=== PATIENT | male | born 1935 | race Caucasian/White ===

== ENCOUNTER 2018-08-27 07:10 | Day surgery (SDC) | payer MEDICARE, BC ==
[2018-08-18 11:31] VITALS: BMI 27.3
[2018-08-27] MEDS ORDERED: Midazolam HCl 2 mg/2 ml Vial ONE (10:05)
[2018-08-27] MEDS ORDERED: Heparin 10,000 UNITS/1 ML VIAL ONE (10:05)
[2018-08-27] MEDS ORDERED: Verapamil 5 MG/2 ML VIAL ONE (10:05)
[2018-08-27] MEDS ORDERED: Nitroglycerin 100MG/250ML BOT 250 ML ONE (10:05)
[2018-08-27] MEDS ORDERED: Fentanyl 100 MCG/2 ML VIAL ONE (10:06)
[2018-08-27] MEDS ORDERED: Iopamidol 370 76% 100 ML VIAL ONE (10:28)
== END 2018-08-27 15:50 | disposition home or self-care (01) ==
LOC: CCL 07:10
PROVIDERS: ATTEND Internal Medicine Cardiovascular Disease
PROC: 4A023N7 Measurement of Cardiac Sampling and Pressure, Left Heart, Percutaneous Approach (ICD-10-PCS; principal; 2018-08-27)
PROC: B2111ZZ Fluoroscopy of Multiple Coronary Arteries using Low Osmolar Contrast (ICD-10-PCS; 2018-08-27)
DX: I25.10 Atherosclerotic heart disease of native coronary artery without angina pectoris (principal); I11.0 Hypertensive heart disease with heart failure; I50.9 Heart failure, unspecified; I27.20 Pulmonary hypertension, unspecified; E07.9 Disorder of thyroid, unspecified; M10.9 Gout, unspecified; K21.9 Gastro-esophageal reflux disease without esophagitis; M19.90 Unspecified osteoarthritis, unspecified site; E78.5 Hyperlipidemia, unspecified; J45.909 Unspecified asthma, uncomplicated; Z79.1 Long term (current) use of non-steroidal anti-inflammatories (NSAID); Z79.82 Long term (current) use of aspirin; Z79.899 Other long term (current) drug therapy; Z88.5 Allergy status to narcotic agent
CPT/HCPCS: 93458; 93798; 99152; C1769; J1644; J2250; J3010; Q9967

== ENCOUNTER 2022-05-15 14:06 | Outpatient (CLI) | payer MEDICARE, BC ==
[2022-05-15 14:40] LABS: Hemoglobin 15.6 g/dL (13.5-17.5); Mean Corpuscular HGB CONC 34.5 g/dL (32.0-36.0); Mean Corpuscular Hemoglobin 30.9 pg (27.0-33.0); Mean Corpuscular Volume 89.5 fl (81.2-95.1); Mean Platelet Volume 9.2 fl (7.4-10.4); Platelet Count 223 10x3/uL (150-450); RBC Distribution Width 12.9 % (11.5-14.5); Red Blood Cell (RBC) Count 5.05 10x6/uL (4.32-5.72); White Blood Cell (WBC) Count 6.9 10x3/uL (3.5-10.5)
[2022-05-15 14:52] LABS: PTT 26.7 sec (22.0-33.0); Prothrombin Time 10.5 sec (9.5-12.1)
[2022-05-15 15:01] LABS: Anion Gap 14 mmol/L (10-20); BUN (Urea Nitrogen) 21 mg/dL (8.4-25.7); Calc. Creatinine Clearance 0 mL/min (70-130); Carbon Dioxide 27 mmol/L (23-31); Chloride 106 mmol/L (98-107); Estimated GFR 53; Glucose 102 mg/dL (83-110); Sodium 143 mmol/L (136-145)
== END 2022-05-15 14:07 | disposition home or self-care (01) ==
LOC: LABBT 14:06
PROVIDERS: ATTEND Surgery
DX: Z01.812 Encounter for preprocedural laboratory examination (principal); M48.062 Spinal stenosis, lumbar region with neurogenic claudication; M54.16 Radiculopathy, lumbar region
CPT/HCPCS: 80048; 85027; 85610; 85730

== ENCOUNTER 2022-05-20 07:45 | Observation (INO) | payer MEDICARE, BC ==
[2022-05-20 09:06] LABS: SARS-CoV-2 NAA Rapid Test Not Detected (NotDetected)
[2022-05-20] MEDS ORDERED: Fentanyl 250 MCG/5 ML VIAL ONE (10:05)
[2022-05-20] MEDS ORDERED: Vancomycin 1 GM VIAL ONE (10:05)
[2022-05-20] MEDS ORDERED: Thrombin 5000 UNITS/5 ML VIAL ONE (10:05)
[2022-05-20] MEDS ORDERED: SUGAMMADEX SODIUM 200 MG/2 ML VIAL ONE (10:06)
[2022-05-20] MEDS ORDERED: Sodium Chloride 0.9% 100 ML ONE (10:08)
[2022-05-20] MEDS ORDERED: CEFAZOLIN 2 GM VIAL ONE (10:08)
[2022-05-20] MEDS ORDERED: Dexamethasone 20 MG/5 ML VIAL ONE (10:15)
[2022-05-20] MEDS ORDERED: PROPOFOL 200 MG/20 ML VIAL ONE (10:15)
[2022-05-20] MEDS ORDERED: Ondansetron PF 4 MG/2 ML Vial ONE (10:15)
[2022-05-20] MEDS ORDERED: Lidocaine 1% PF 5 ML VIAL ONE (10:15)
[2022-05-20] MEDS ORDERED: Glycopyrrolate 0.2 MG/ML 5 ML SYRINGE ONE (10:15)
[2022-05-20] MEDS ORDERED: PHENYLEPHRINE-NS 100 MCG/ML 10 ML SYRINGE ONE (10:15)
[2022-05-20] MEDS ORDERED: NEOSTIGMINE 3 MG/3 ML SYR 3 MG/3 ML SYRINGE ONE (10:15)
[2022-05-20] MEDS ORDERED: traMADol HCl 50 MG TAB PO PRN (12:08)
[2022-05-20] MEDS ORDERED: Ondansetron PF 4 MG/2 ML Vial IVP PRN (12:08)
[2022-05-20] MEDS ORDERED: diphenhydrAMINE 25 MG CAP PO PRN (12:08)
[2022-05-20] MEDS ORDERED: Acetaminophen 325 MG TAB PO PRN (12:08)
[2022-05-20] MEDS ORDERED: Morphine 2 MG/ML VIAL SLOW IVP PRN (12:08)
[2022-05-20] MEDS ORDERED: oxyCODONE 5 MG TAB PO PRN (12:10)
[2022-05-20] MEDS ORDERED: hydrALAZINE 20 MG/ML VIAL SLOW IVP PRN (12:10)
[2022-05-20] MEDS ORDERED: tiZANidine HCl 4 MG TAB PO PRN (12:10)
[2022-05-20] MEDS ORDERED: Albuterol 200 PUFF (6.7GM INHALER) INH PRN (12:11)
[2022-05-20] MEDS: Sodium Chloride 0.9% 1,000 ML IV SCH ×2 (12:15→20:48)
[2022-05-20] MEDS ORDERED: Fentanyl 100 MCG/2 ML VIAL ONE (13:04)
[2022-05-20] MEDS ORDERED: Polyethylene Glycol 3350 17 GM Packet PO PRN (13:12)
[2022-05-20] MEDS ORDERED: Ondansetron HCl/PF 4 MG/2 ML Vial IVP PRN (13:30)
[2022-05-20] MEDS ORDERED: Promethazine HCl 25 MG/ML VIAL IM/IV PRN (13:30)
[2022-05-20 16:55] VITALS: BMI 27.7
[2022-05-20] MEDS: Acetaminophen/Codeine 30-300mg Tablet PO PRN (20:44)
[2022-05-20] MEDS ORDERED: Atorvastatin Calcium 20 MG TAB PO SCH (21:00)
[2022-05-20] MEDS ORDERED: Montelukast Sodium 10 mg Tablet PO SCH (21:00)
[2022-05-20] MEDS ORDERED: Loratadine 10 MG TAB PO SCH (21:00)
[2022-05-20] MEDS: CEFAZOLIN 2 GM in Sodium Chloride 0.9% 100 ML IVPB SCH (21:23)
[2022-05-21] MEDS: CEFAZOLIN 2 GM in Sodium Chloride 0.9% 100 ML IVPB SCH (03:17)
[2022-05-21] MEDS ORDERED: Levothyroxine 150 MCG TAB PO SCH (06:00)
[2022-05-21] MEDS: Acetaminophen/Codeine 30-300mg Tablet PO PRN (06:30)
[2022-05-21] MEDS ORDERED: Folic Acid 1 MG TAB PO SCH (09:00)
[2022-05-21] MEDS ORDERED: Cyanocobalamin (Vitamin B-12) 1,000 MCG TAB PO SCH (09:00)
[2022-05-21] MEDS ORDERED: Cholecalciferol 1,000 UNITS (25 MCG) TAB PO SCH (09:00)
[2022-05-21] MEDS ORDERED: Allopurinol 300 MG TAB PO SCH (09:00)
[2022-05-21] MEDS ORDERED: Hydrochlorothiazide 25 MG TAB PO SCH (09:00)
[2022-05-21] MEDS ORDERED: Multivitamin W/ Minerals 1 TAB PO SCH (09:00)
[2022-05-21] MEDS ORDERED: Amlodipine 10 MG TAB PO SCH (09:00)
[2022-05-21 11:57] VITALS: BP 143/78; TEMP 97.8
== END 2022-05-21 12:47 | disposition home or self-care (01) ==
LOC: SDC 07:45 → T4-A 12:12
PROVIDERS: ADMIT Surgery; ATTEND Surgery
PROC: 01NB0ZZ Release Lumbar Nerve, Open Approach (ICD-10-PCS; principal; 2022-05-20)
DX: M48.062 Spinal stenosis, lumbar region with neurogenic claudication (principal); M54.16 Radiculopathy, lumbar region; Z79.890 Hormone replacement therapy; Z79.899 Other long term (current) drug therapy; Z88.5 Allergy status to narcotic agent; Z88.8 Allergy status to other drugs, medicaments and biological substances; Z20.822 Contact with and (suspected) exposure to COVID-19
CPT/HCPCS: 63047; U0002; J1100; J2405; J2704; J3010; J3370; J3490; J7050

== ENCOUNTER 2022-05-23 22:27 | Inpatient (IN) | payer MEDICARE, BC ==
[2022-05-23 23:37] LABS: #Eosinphils 0.1 thou/uL (0.0-0.7); #Lymphocytes 1.7 thou/uL (1.20-3.40); #Monocytes 1.4 thou/uL (0.11-0.59); #Neutrophils 7.9 thou/uL (1.40-6.50); %Basophils 0.4 % (0.0-1.0); %Eosinophils 1.2 % (0.0-10.0); %Lymphocytes 15.4 % (21.0-51.0); %Monocytes 12.9 % (0.0-10.0); %Neutrophils 70.1 % (42.0-75.0); Mean Corpuscular HGB CONC 35.3 g/dL (32.0-36.0); Mean Corpuscular Hemoglobin 32.7 pg (27.0-31.0); Mean Corpuscular Volume 92.4 fl (78.0-98.0); Mean Platelet Volume 7.1 fL (7.4-10.4); Platelet Count 241 10x3/uL (130-400); Red Blood Cell (RBC) Count 4.59 mill/uL (4.70-6.10); White Blood Cell (WBC) Count 11.2 10x3/uL (4.8-10.8)
[2022-05-23 23:44] LABS: ALT (SGPT) 12 U/L (8-55); AST (SGOT) 21 U/L (5-34); Albumin 4.2 g/dL (3.4-4.8); Alkaline Phosphatase 68 U/L (40-110); Anion Gap 15 mmol/L (10-20); BUN (Urea Nitrogen) 29 mg/dL (8.4-25.7); Bilirubin, Total 0.9 mg/dL (0.2-1.2); Calc. Creatinine Clearance 0 mL/min (70-130); Calcium 9.2 mg/dL (7.8-10.44); Carbon Dioxide 24 mmol/L (23-31); Chloride 100 mmol/L (98-107); Estimated GFR 47; Globulin 2.3 g/dL (2.4-3.5); Glucose 113 mg/dL (83-110); Potassium 3.9 mmol/L (3.5-5.1); Protein, Total 6.5 g/dL (5.8-8.1); Sodium 135 mmol/L (136-145)
[2022-05-24] MEDS ORDERED: Cefepime 2 GM VIAL ONE
[2022-05-24] MEDS ORDERED: Vancomycin 1 GM/200 ML (FROZEN) BAG ONE (00:34)
[2022-05-24 00:53] LABS: CKMB 1.7 ng/mL (0-6.6)
[2022-05-24 02:10] VITALS: BMI 27.7
[2022-05-24] MEDS ORDERED: Sodium Chloride 0.9% 1,000 ML IV SCH (02:15)
[2022-05-24] MEDS ORDERED: Ondansetron ODT 4 MG TAB SL PRN (02:15)
[2022-05-24] MEDS ORDERED: Acetaminophen 325 MG TAB PO PRN (02:15)
[2022-05-24] MEDS ORDERED: Ondansetron PF 4 MG/2 ML Vial IVP PRN (02:15)
[2022-05-24] MEDS ORDERED: Acetaminophen 650 MG Suppository PR PRN (03:00)
[2022-05-24 05:41] LABS: #Eosinphils 0.2 thou/uL (0.0-0.7); #Lymphocytes 1.6 thou/uL (1.20-3.40); #Monocytes 1.4 thou/uL (0.11-0.59); #Neutrophils 6.5 thou/uL (1.40-6.50); %Basophils 0.3 % (0.0-1.0); %Eosinophils 1.8 % (0.0-10.0); %Lymphocytes 16.2 % (21.0-51.0); %Monocytes 14.6 % (0.0-10.0); %Neutrophils 67.1 % (42.0-75.0); Hemoglobin 12.7 g/dL (14.0-18.0); Mean Corpuscular HGB CONC 33.5 g/dL (32.0-36.0); Mean Corpuscular Hemoglobin 31.3 pg (27.0-31.0); Mean Corpuscular Volume 93.7 fl (78.0-98.0); Mean Platelet Volume 6.7 fL (7.4-10.4); Platelet Count 211 10x3/uL (130-400); Red Blood Cell (RBC) Count 4.05 mill/uL (4.70-6.10); White Blood Cell (WBC) Count 9.7 10x3/uL (4.8-10.8)
[2022-05-24 06:06] LABS: Troponin I Less than 0.010 ng/mL (< 0.028)
[2022-05-24 06:10] LABS: Anion Gap 13 mmol/L (10-20); BUN (Urea Nitrogen) 26 mg/dL (8.4-25.7); Calc. Creatinine Clearance 59 mL/min (70-130); Calcium 8.6 mg/dL (7.8-10.44); Carbon Dioxide 23 mmol/L (23-31); Chloride 104 mmol/L (98-107); Estimated GFR 60; Glucose 120 mg/dL (83-110); Potassium 3.5 mmol/L (3.5-5.1); Sodium 136 mmol/L (136-145)
[2022-05-24] MEDS: Sodium Chloride 0.9% 1,000 ML IV SCH ×2 (08:24→11:41)
[2022-05-24] MEDS ORDERED: Cefepime 2 GM in Sodium Chloride 0.9% 100 ML IVPB SCH (11:00)
[2022-05-24] MEDS ORDERED: Vancomycin HCl 1.25 GM in Sodium Chloride 0.9% 250 ML 300 ML IVPB SCH (11:00)
[2022-05-24] MEDS ORDERED: Vancomycin 1.5 GRAM/300 ML BAG 1.5 GM in Premix Bag 1 BAG IVPB SCH (17:00)
[2022-05-24] MEDS ORDERED: Bisacodyl 5 MG TAB PO PRN (17:36)
[2022-05-24] MEDS: Cefepime 1 GM in Sodium Chloride 0.9% 100 ML IVPB SCH (23:53)
[2022-05-25 01:12] LABS: Bacteria/HPF None Seen HPF (None Seen); Bilirubin Negative (Negative); Blood, Urine Negative (Negative); CAUTI Indications for Culture Fever or rigors; Clarity Clear (Clear); Glucose, Urine (Dipstick) Normal (Negative); Ketone, Urine Negative (Negative); Leukocyte Negative Leu/uL (Negative); Nitrite Negative (Negative); Protein, Urine (Dipstick) Negative (Neg-Trace); RBC/HPF 0-3 HPF (0-3); Specific Gravity, Urine 1.009 (1.002-1.036); Squamous Epithelial 0-3 HPF (0-3); Urobilinogen Normal mg/dL (Less than 2); WBC/HPF 0-3 HPF (0-3); pH, Urine 6.5 (5.0-9.0)
[2022-05-25 01:14] LABS: Urine Culture Reflex No No
[2022-05-25] MEDS: Cefepime 1 GM in Sodium Chloride 0.9% 100 ML IVPB SCH (11:05)
[2022-05-25] MEDS ORDERED: Atorvastatin Calcium 20 MG TAB PO SCH (21:00)
[2022-05-25] MEDS ORDERED: Montelukast Sodium 10 mg Tablet PO SCH (21:00)
[2022-05-25] MEDS ORDERED: Loratadine 10 MG TAB PO SCH (21:00)
[2022-05-26] MEDS ORDERED: Levothyroxine 150 MCG TAB PO SCH (06:00)
[2022-05-26 06:11] LABS: Anion Gap 14 mmol/L (10-20); BUN (Urea Nitrogen) 14 mg/dL (8.4-25.7); Calc. Creatinine Clearance 68 mL/min (70-130); Carbon Dioxide 22 mmol/L (23-31); Chloride 106 mmol/L (98-107); Estimated GFR 72; Glucose 115 mg/dL (83-110); Potassium 3.4 mmol/L (3.5-5.1); Sodium 139 mmol/L (136-145)
[2022-05-26 06:24] LABS: Hemoglobin 12.6 g/dL (14.0-18.0); Mean Corpuscular HGB CONC 33.9 g/dL (32.0-36.0); Mean Corpuscular Hemoglobin 31.6 pg (27.0-31.0); Mean Corpuscular Volume 93.1 fl (78.0-98.0); Mean Platelet Volume 6.9 fL (7.4-10.4); Platelet Count 237 10x3/uL (130-400); RBC Distribution Width 11.8 % (11.5-14.5); White Blood Cell (WBC) Count 9.1 10x3/uL (4.8-10.8)
[2022-05-26 08:09] LABS: Band 2 % (5-11); Eosinophils 4 % (0-10); Lymphocytes 26 % (21-51); MDiff Complete? YES; Monocytes 5 % (0-10); Neutrophil 63 % (42-75); Platelet Morphology Comment Appears Adequate; RBC Morphology Normal
[2022-05-26] MEDS ORDERED: Amlodipine 10 MG TAB PO SCH (09:00)
[2022-05-26] MEDS ORDERED: Cholecalciferol 1,000 UNITS (25 MCG) TAB PO SCH (09:00)
[2022-05-26] MEDS ORDERED: Allopurinol 300 MG TAB PO SCH (09:00)
[2022-05-26] MEDS ORDERED: Multivitamin W/ Minerals 1 TAB PO SCH (09:00)
[2022-05-26] MEDS ORDERED: Folic Acid 1 MG TAB PO SCH (09:00)
[2022-05-26] MEDS ORDERED: Potassium Chloride 20 MEQ TAB PO SCH (11:30)
[2022-05-26 12:42] VITALS: BP 144/80; TEMP 98.6
== END 2022-05-26 13:55 | disposition home or self-care (01) | DRG 91 ==
LOC: ERS 22:27 → SURG B 05-24 00:29
PROVIDERS: ADMIT Internal Medicine; ATTEND Internal Medicine
DX: G92.8 Other toxic encephalopathy (principal); I21.A1 Myocardial infarction type 2; E87.1 Hypo-osmolality and hyponatremia; F05 Delirium due to known physiological condition; E87.6 Hypokalemia; E78.5 Hyperlipidemia, unspecified; K21.9 Gastro-esophageal reflux disease without esophagitis; E03.9 Hypothyroidism, unspecified; R50.9 Fever, unspecified; T39.8X5A Adverse effect of other nonopioid analgesics and antipyretics, not elsewhere classified, initial encounter; N18.30 Chronic kidney disease, stage 3 unspecified; Z88.8 Allergy status to other drugs, medicaments and biological substances; Z79.899 Other long term (current) drug therapy; Z79.890 Hormone replacement therapy; Z90.89 Acquired absence of other organs; Z98.890 Other specified postprocedural states
CPT/HCPCS: 36415; 70450; 71045; 80048; 80053; 81001; 82553; 83605; 84484; 85025; 85652; 86140; 87040; 93005; 93970; J0692; J3370; J3370-JW; J3490; J7050

== ENCOUNTER 2022-11-11 14:51 | Inpatient (IN) | payer MEDICARE, BC ==
[2022-11-11 17:10] VITALS: BMI 29.1
[2022-11-11] MEDS ORDERED: Nitroglycerin 0.4 MG TAB (25 Tab Bottle) SL PRN (20:09)
[2022-11-11] MEDS ORDERED: Morphine 2 MG/ML VIAL SLOW IVP SCH (20:15)
[2022-11-11] MEDS ORDERED: Acetaminophen/Codeine 30-300mg Tablet PO PRN (22:32)
[2022-11-11 23:19] LABS: Troponin I 0.099 ng/mL (< 0.028)
[2022-11-12] MEDS: Nitroglycerin 2% Ointment 1 INCH/1 GM Packet TOP SCH ×2 (05:08→14:38)
[2022-11-12 07:05] LABS: Cardiac Risk 3.1 (Less than 4.5)
[2022-11-12] MEDS ORDERED: Atorvastatin Calcium 20 MG TAB PO SCH ×2 (08:45→09:00)
[2022-11-12] MEDS ORDERED: Non-Formulary Item 1 EACH (Duloxetine Hcl [Duloxetine Hcl] 40 MG Capsule.Dr) PO SCH (09:00)
[2022-11-12] MEDS: Levothyroxine 150 MCG TAB PO SCH (09:02)
[2022-11-12] MEDS: Aspirin 325 mg Enteric Coated Tablet PO SCH (09:02)
[2022-11-12] MEDS: Amlodipine 10 MG TAB PO SCH (09:02)
[2022-11-12] MEDS: DULoxetine 20 MG CAP PO SCH ×2 (09:34→20:03)
[2022-11-12] MEDS: Colchicine 0.6 MG TAB PO SCH ×2 (10:01→20:03)
[2022-11-12] MEDS: Ibuprofen 600 MG TAB PO SCH ×3 (10:01→20:03)
[2022-11-12 12:37] LABS: Hemoglobin 13.3 g/dL (14.0-18.0); Platelet Count 168 10x3/uL (130-400)
[2022-11-12] MEDS ORDERED: Montelukast Sodium 10 mg Tablet PO SCH (21:00)
[2022-11-13 06:13] LABS: Anion Gap 13 mmol/L (10-20); BUN (Urea Nitrogen) 25 mg/dL (8.4-25.7); Calc. Creatinine Clearance 45 mL/min (70-130); Carbon Dioxide 24 mmol/L (23-31); Chloride 104 mmol/L (98-107); Estimated GFR 43; Potassium 3.6 mmol/L (3.5-5.1); Sodium 137 mmol/L (136-145)
[2022-11-13 06:14] LABS: Calcium 9.3 mg/dL (7.8-10.44); Glucose 137 mg/dL (83-110)
[2022-11-13] MEDS: Amlodipine 10 MG TAB PO SCH (08:50)
[2022-11-13] MEDS: Ibuprofen 600 MG TAB PO SCH (08:50)
[2022-11-13] MEDS: Levothyroxine 150 MCG TAB PO SCH (08:50)
[2022-11-13] MEDS: DULoxetine 20 MG CAP PO SCH (08:50)
[2022-11-13] MEDS: Colchicine 0.6 MG TAB PO SCH (08:50)
[2022-11-13] MEDS: Aspirin 325 mg Enteric Coated Tablet PO SCH (08:50)
[2022-11-13 11:57] VITALS: BP 124/66; TEMP 97.4
== END 2022-11-13 12:30 | disposition home or self-care (01) | DRG 316 ==
LOC: 2SW 16:53 → OBSVTOIN 11-12 15:20
PROVIDERS: ADMIT Internal Medicine; ATTEND Hospitalist
DX: I31.39 Other pericardial effusion (noninflammatory) (principal); I31.9 Disease of pericardium, unspecified; I10 Essential (primary) hypertension; E78.5 Hyperlipidemia, unspecified; E03.9 Hypothyroidism, unspecified; Z66 Do not resuscitate; I25.10 Atherosclerotic heart disease of native coronary artery without angina pectoris; K21.9 Gastro-esophageal reflux disease without esophagitis; J45.909 Unspecified asthma, uncomplicated; Z90.49 Acquired absence of other specified parts of digestive tract; Z88.5 Allergy status to narcotic agent; Z88.8 Allergy status to other drugs, medicaments and biological substances; Z79.899 Other long term (current) drug therapy; Z79.51 Long term (current) use of inhaled steroids; Z98.890 Other specified postprocedural states
CPT/HCPCS: 36415; 36416; 80048; 80061; 82553; 82565; 84484; 85014; 85018; 85049; 93005; 93010; 93306; 96372; 96374; G0378; J1650; J2272

== ENCOUNTER 2022-12-02 11:18 | Inpatient (IN) | payer MEDICARE, BC ==
[2022-12-02 11:53] LABS: #Basophils 0.1 thou/uL (0.0-0.2); #Eosinphils 0.1 thou/uL (0.0-0.7); #Monocytes 0.8 thou/uL (0.11-0.59); #Neutrophils 5.4 thou/uL (1.40-6.50); %Basophils 0.7 % (0.0-1.0); %Eosinophils 1.5 % (0.0-10.0); %Lymphocytes 14.3 % (21.0-51.0); %Monocytes 10.4 % (0.0-10.0); %Neutrophils 72.4 % (42.0-75.0); Hematocrit 41.6 % (42.0-52.0); Hemoglobin 13.4 g/dL (14.0-18.0); Mean Corpuscular HGB CONC 32.2 g/dL (32.0-36.0); Mean Corpuscular Hemoglobin 29.5 pg (27.0-31.0); Mean Corpuscular Volume 91.6 fl (78.0-98.0); Mean Platelet Volume 8.8 fL (7.4-10.4); Platelet Count 396 10x3/uL (130-400); RBC Distribution Width 13.1 % (11.5-14.5); Red Blood Cell (RBC) Count 4.54 mill/uL (4.70-6.10); White Blood Cell (WBC) Count 7.4 10x3/uL (4.8-10.8)
[2022-12-02] MEDS ORDERED: Nitroglycerin 2% Ointment 1 INCH/1 GM Packet ONE (12:11)
[2022-12-02] MEDS ORDERED: Aspirin Chewable 81 MG TAB ONE (12:11)
[2022-12-02 12:22] LABS: ALT (SGPT) 13 U/L (8-55); AST (SGOT) 16 U/L (5-34); Albumin 4.1 g/dL (3.4-4.8); Alkaline Phosphatase 93 U/L (40-110); Anion Gap 16 mmol/L (10-20); BUN (Urea Nitrogen) 15 mg/dL (8.4-25.7); Bilirubin, Total 0.3 mg/dL (0.2-1.2); Calc. Creatinine Clearance 0 mL/min (70-130); Calcium 9.5 mg/dL (7.8-10.44); Carbon Dioxide 23 mmol/L (23-31); Chloride 105 mmol/L (98-107); Estimated GFR 43; Globulin 3.2 g/dL (2.4-3.5); Glucose 119 mg/dL (83-110); Lipase 11 U/L (8-78); Potassium 3.8 mmol/L (3.5-5.1); Protein, Total 7.3 g/dL (5.8-8.1); Sodium 140 mmol/L (136-145)
[2022-12-02 12:23] LABS: Troponin I Less than 0.010 ng/mL (< 0.028)
[2022-12-02] MEDS ORDERED: Ondansetron ODT 4 MG TAB SL PRN (14:30)
[2022-12-02] MEDS ORDERED: Acetaminophen 325 MG TAB PO PRN (14:30)
[2022-12-02] MEDS ORDERED: Ondansetron PF 4 MG/2 ML Vial IVP PRN (14:30)
[2022-12-02 15:11] LABS: Troponin I Less than 0.010 ng/mL (< 0.028)
[2022-12-02 15:44] LABS: Free T4 (Free Thyroxine) 1.29 ng/dL (0.70-1.48)
[2022-12-02 17:38] VITALS: BMI 26.6
[2022-12-02 18:32] LABS: Troponin I Less than 0.010 ng/mL (< 0.028)
[2022-12-02] MEDS: Colchicine 0.6 MG TAB PO SCH (20:40)
[2022-12-03] MEDS ORDERED: Iopamidol-370 76% 500 ML MDV (1 ML CHARGE) ONE (09:02)
[2022-12-03] MEDS: Amlodipine 10 MG TAB PO SCH (10:01)
[2022-12-03] MEDS: Fluticasone Propionate Nasal Spray 16 gm Bottle NASAL SCH ×2 (10:01→20:04)
[2022-12-03] MEDS: Aspirin Chewable 81 MG TAB PO SCH (10:01)
[2022-12-03] MEDS: DULoxetine 20 MG CAP PO SCH ×2 (10:02→20:04)
[2022-12-03] MEDS: Colchicine 0.6 MG TAB PO SCH ×2 (10:02→20:08)
[2022-12-03] MEDS ORDERED: Ondansetron PF 4 MG/2 ML Vial IVP PRN (17:25)
[2022-12-03] MEDS ORDERED: Ondansetron ODT 4 MG TAB SL PRN (17:25)
[2022-12-03] MEDS: Montelukast Sodium 10 mg Tablet PO SCH (20:04)
[2022-12-03] MEDS: Ibuprofen 800 MG TAB PO SCH (20:05)
[2022-12-03] MEDS ORDERED: Atorvastatin Calcium 20 MG TAB PO SCH (21:00)
[2022-12-04 04:22] LABS: #Basophils 0.1 thou/uL (0.0-0.2); #Eosinphils 0.2 thou/uL (0.0-0.7); #Monocytes 0.9 thou/uL (0.11-0.59); #Neutrophils 5.2 thou/uL (1.40-6.50); %Eosinophils 2.6 % (0.0-10.0); %Lymphocytes 19.4 % (21.0-51.0); %Monocytes 11.2 % (0.0-10.0); %Neutrophils 65.2 % (42.0-75.0); Hematocrit 39.3 % (42.0-52.0); Hemoglobin 12.6 g/dL (14.0-18.0); Mean Corpuscular HGB CONC 32.1 g/dL (32.0-36.0); Mean Corpuscular Hemoglobin 29.3 pg (27.0-31.0); Mean Corpuscular Volume 91.4 fl (78.0-98.0); Mean Platelet Volume 8.7 fL (7.4-10.4); Platelet Count 403 10x3/uL (130-400)
[2022-12-04 04:43] LABS: Anion Gap 13 mmol/L (10-20); BUN (Urea Nitrogen) 18 mg/dL (8.4-25.7); Calc. Creatinine Clearance 48 mL/min (70-130); Calcium 9.6 mg/dL (7.8-10.44); Carbon Dioxide 25 mmol/L (23-31); Chloride 103 mmol/L (98-107); Estimated GFR 52; Glucose 120 mg/dL (83-110); Sodium 137 mmol/L (136-145)
[2022-12-04] MEDS: Levothyroxine 150 MCG TAB PO SCH (05:41)
[2022-12-04] MEDS: Ibuprofen 800 MG TAB PO SCH ×2 (08:59→20:39)
[2022-12-04] MEDS: Aspirin Chewable 81 MG TAB PO SCH (08:59)
[2022-12-04] MEDS: Amlodipine 10 MG TAB PO SCH (08:59)
[2022-12-04] MEDS: Colchicine 0.6 MG TAB PO SCH ×2 (08:59→20:38)
[2022-12-04] MEDS: DULoxetine 20 MG CAP PO SCH ×2 (09:00→20:39)
[2022-12-04] MEDS: Fluticasone Propionate Nasal Spray 16 gm Bottle NASAL SCH ×2 (09:05→20:40)
[2022-12-04] MEDS: Heparin 5,000 UNITS/ML VIAL SC SCH (20:39)
[2022-12-04] MEDS: Montelukast Sodium 10 mg Tablet PO SCH (20:39)
[2022-12-05 04:46] LABS: #Basophils 0.1 thou/uL (0.0-0.2); #Eosinphils 0.2 thou/uL (0.0-0.7); #Monocytes 0.8 thou/uL (0.11-0.59); #Neutrophils 5.2 thou/uL (1.40-6.50); %Basophils 0.9 % (0.0-1.0); %Eosinophils 2.9 % (0.0-10.0); %Lymphocytes 17.1 % (21.0-51.0); %Monocytes 10.5 % (0.0-10.0); %Neutrophils 67.8 % (42.0-75.0); Hematocrit 40.5 % (42.0-52.0); Hemoglobin 13.1 g/dL (14.0-18.0); Mean Corpuscular HGB CONC 32.3 g/dL (32.0-36.0); Mean Corpuscular Hemoglobin 29.6 pg (27.0-31.0); Mean Corpuscular Volume 91.4 fl (78.0-98.0); Mean Platelet Volume 8.6 fL (7.4-10.4); Platelet Count 397 10x3/uL (130-400); RBC Distribution Width 12.8 % (11.5-14.5); Red Blood Cell (RBC) Count 4.43 mill/uL (4.70-6.10); White Blood Cell (WBC) Count 7.6 10x3/uL (4.8-10.8)
[2022-12-05 05:07] LABS: Anion Gap 13 mmol/L (10-20); BUN (Urea Nitrogen) 20 mg/dL (8.4-25.7); Calc. Creatinine Clearance 55 mL/min (70-130); Calcium 9.1 mg/dL (7.8-10.44); Carbon Dioxide 25 mmol/L (23-31); Cardiac Risk 5.1 (Less than 4.5); Chloride 102 mmol/L (98-107); Cholesterol 108 mg/dl (< 200 Desired); Estimated GFR 60; Glucose 109 mg/dL (83-110); HDL Cholesterol 21 mg/dL (>60 Neg Risk); LDL Cholesterol, Calculated 59 mg/dL; Sodium 136 mmol/L (136-145); Triglycerides 142 mg/dL (Less than 150)
[2022-12-05] MEDS: Levothyroxine 150 MCG TAB PO SCH (05:24)
[2022-12-05] MEDS: DULoxetine 20 MG CAP PO SCH (09:41)
[2022-12-05] MEDS: Colchicine 0.6 MG TAB PO SCH (09:41)
[2022-12-05] MEDS: Ibuprofen 800 MG TAB PO SCH (09:41)
[2022-12-05] MEDS: Heparin 5,000 UNITS/ML VIAL SC SCH (09:41)
[2022-12-05] MEDS: Aspirin Chewable 81 MG TAB PO SCH (09:41)
[2022-12-05] MEDS: Amlodipine 10 MG TAB PO SCH (09:42)
[2022-12-05] MEDS: Fluticasone Propionate Nasal Spray 16 gm Bottle NASAL SCH (10:01)
[2022-12-05 15:41] VITALS: BP 127/79
[2022-12-05 15:47] VITALS: TEMP 97.6
== END 2022-12-05 17:30 | disposition home or self-care (01) | DRG 315 ==
LOC: ERS 11:18 → 2NO 13:32 → ERHOLD 13:32 → 2NO 16:37 → OBSVTOIN 12-03 17:24
PROVIDERS: ADMIT Hospitalist; ATTEND Family Medicine
DX: I30.9 Acute pericarditis, unspecified (principal); I13.0 Hypertensive heart and chronic kidney disease with heart failure and stage 1 through stage 4 chronic kidney disease, or unspecified chronic kidney disease; I50.32 Chronic diastolic (congestive) heart failure; N17.9 Acute kidney failure, unspecified; I25.10 Atherosclerotic heart disease of native coronary artery without angina pectoris; I45.10 Unspecified right bundle-branch block; M10.9 Gout, unspecified; K21.9 Gastro-esophageal reflux disease without esophagitis; E78.5 Hyperlipidemia, unspecified; E03.9 Hypothyroidism, unspecified; Z66 Do not resuscitate; N18.30 Chronic kidney disease, stage 3 unspecified; F32.A Depression, unspecified; D63.1 Anemia in chronic kidney disease; J30.9 Allergic rhinitis, unspecified; K80.20 Calculus of gallbladder without cholecystitis without obstruction; Z88.8 Allergy status to other drugs, medicaments and biological substances; Z88.5 Allergy status to narcotic agent; Z79.899 Other long term (current) drug therapy; Z79.51 Long term (current) use of inhaled steroids; Z90.49 Acquired absence of other specified parts of digestive tract; Z98.890 Other specified postprocedural states; Z98.42 Cataract extraction status, left eye; Z98.41 Cataract extraction status, right eye
CPT/HCPCS: 36415; 71045; 71250; 71275; 80048; 80053; 80061; 83690; 83880; 84439; 84443; 84481; 84484; 85025; 85379; 93005; 93306; 94760; J1644; Q9967

== ENCOUNTER 2025-03-09 20:02 | Inpatient (IN) | payer MEDICARE, BC ==
[2025-03-09] MEDS ORDERED: Calcium Carbonate 500 MG ChewTAB PO PRN (22:40)
[2025-03-09] MEDS ORDERED: Acetaminophen 325 MG TAB PO PRN (22:40)
[2025-03-09] MEDS ORDERED: Ondansetron PF 4 MG/2 ML Vial IVP PRN (22:40)
[2025-03-09] MEDS ORDERED: Senokot S 8.6-50 MG TAB PO PRN (22:40)
[2025-03-09] MEDS ORDERED: hydrALAZINE 20 MG/ML VIAL SLOW IVP PRN (22:40)
[2025-03-09 22:51] VITALS: BMI 26.4
[2025-03-10] MEDS ORDERED: Albuterol 2.5 MG (3 mL) NEB NEB PRN (02:18)
[2025-03-10 04:08] LABS: #Basophils 0.08 10x3/uL (0.0-0.2); #Eosinophils 0.06 10x3/uL (0.0-0.7); #Monocytes 1.06 10x3/uL (0.11-0.59); #Neutrophils 7.53 10x3/uL (1.40-6.50); %Basophils 0.7 % (0.0-1.0); %Eosinophils 0.5 % (0.0-10.0); %Lymphocytes 22.2 % (21.0-51.0); %Monocytes 9.4 % (0.0-10.0); %Neutrophils 66.7 % (42.0-75.0); Hematocrit 45.8 % (42.0-52.0); Hemoglobin 15.1 g/dL (14.0-18.0); Mean Corpuscular Hemoglobin 30.5 pg (27.0-31.0); Mean Corpuscular Volume 92.5 fL (78.0-98.0); Platelet Count 230 10x3/uL (130-400); Red Blood Cell (RBC) Count 4.95 mill/uL (4.70-6.10); White Blood Cell (WBC) Count 11.30 10x3/uL (4.8-10.8)
[2025-03-10 04:29] LABS: ALT (SGPT) 18 U/L (Less than 45); AST (SGOT) 20 U/L (11-34); Albumin 4.1 g/dL (3.1-4.5); Alkaline Phosphatase 72 U/L (40-110); Anion Gap 15 mmol/L (10-20); BUN (Urea Nitrogen) 23 mg/dL (8.4-25.7); Bilirubin, Total 0.6 mg/dL (0.3-1.2); Calc. Creatinine Clearance 47 mL/min (70-130); Calcium 9.2 mg/dL (7.8-10.44); Carbon Dioxide 26 mmol/L (23-31); Cardiac Risk 3.3 (Less than 4.5); Chloride 104 mmol/L (98-107); Cholesterol 113 mg/dl (< 200 Desired); Globulin 2.4 g/dL (2.4-3.5); Glucose 122 mg/dL (83-110); HDL Cholesterol 34 mg/dL (>60 Neg Risk); LDL Cholesterol, Calculated 32 mg/dL; Potassium 4.4 mmol/L (3.5-5.1); Sodium 141 mmol/L (136-145); Triglycerides 235 mg/dL (Less than 150)
[2025-03-10] MEDS: Pantoprazole 40 MG DR.TAB PO SCH (08:40)
[2025-03-10] MEDS: Levothyroxine 150 MCG TAB PO SCH (08:40)
[2025-03-10] MEDS: Aspirin 81 mg Enteric Coated Tablet PO SCH (08:40)
[2025-03-10 11:34] VITALS: TEMP 97.9
[2025-03-10 15:52] VITALS: BP 149/84
== END 2025-03-10 18:49 | disposition left against medical advice (07) | DRG 69 ==
LOC: 2SE 22:32 → OBSVTOIN 03-10 15:22
PROVIDERS: ADMIT Internal Medicine; ATTEND Student in an Organized Health Care Education/Training Program
DX: G45.9 Transient cerebral ischemic attack, unspecified (principal); I13.0 Hypertensive heart and chronic kidney disease with heart failure and stage 1 through stage 4 chronic kidney disease, or unspecified chronic kidney disease; I50.32 Chronic diastolic (congestive) heart failure; E03.9 Hypothyroidism, unspecified; E78.5 Hyperlipidemia, unspecified; N18.9 Chronic kidney disease, unspecified; R29.810 Facial weakness; M10.9 Gout, unspecified; K21.9 Gastro-esophageal reflux disease without esophagitis; I25.10 Atherosclerotic heart disease of native coronary artery without angina pectoris; J44.9 Chronic obstructive pulmonary disease, unspecified; Z88.8 Allergy status to other drugs, medicaments and biological substances; Z92.29 Personal history of other drug therapy; Z98.890 Other specified postprocedural states; Z98.49 Cataract extraction status, unspecified eye; Z90.49 Acquired absence of other specified parts of digestive tract; Z90.89 Acquired absence of other organs; Z79.899 Other long term (current) drug therapy; Z79.890 Hormone replacement therapy; Z79.82 Long term (current) use of aspirin; Z88.5 Allergy status to narcotic agent
CPT/HCPCS: 36415; 70551; 80053; 80061; 83036; 84443; 84484; 85025; 93306; 93880; G0378; J7030